=== PATIENT | female | born 2000 | race African-American/Black ===

== ENCOUNTER 2018-01-05 18:43 | Emergency (ER) | payer OTHER ==
[2018-01-05] MEDS: PHENAZOPYRIDINE 100 MG TAB PO (21:54)
[2018-01-05 22:07] LABS: URINE BLOOD (Dip) POC 3+ (NEGATIVE); URINE GLUCOSE (Dip) POC Negative (NEGATIVE); URINE KETONES (Dip) POC Negative (NEGATIVE); URINE LEUKOCYTE EST (Dip) POC 1+ (NEGATIVE); URINE NITRITE (Dip) POC Positive (NEGATIVE); URINE TOTAL PROTEIN POC 2+ (NEGATIVE)
== END 2018-01-05 23:05 | disposition home or self-care (01) ==
LOC: FTE 18:43
DX: N30.01 Acute cystitis with hematuria (principal)
CPT/HCPCS: 81003; 81025; 99283